=== PATIENT | female | born 1965 | race Caucasian/White ===

== ENCOUNTER 2024-03-05 19:22 | Inpatient (IN) | payer OTHER ==
[~2024-03-05] VITALS: Ht 162.6 cm; Wt 81.2 kg
[2024-03-05 19:54] VITALS: BP_SYST 131; PULSE 95; RESP 20; TEMP 98; O2SAT 98
[2024-03-05] MEDS: KETOROLAC TROMETHAMINE 60 MG/2 ML VIAL IM ONE (21:23)
[2024-03-06] MEDS ORDERED: MORPHINE 2 MG/ML INJ. SYRINGE IVP PRN (01:15)
[2024-03-06] MEDS ORDERED: ESOM40CA PO (01:25)
[2024-03-06 01:33] LABS: HEMOGLOBIN 14.4 g/dL (12.0-16.0); MEAN CORPUSCULAR HGB CONC 35 % (32-36); PLATELET COUNT (AUTO) 179 K/uL (130-430)
[2024-03-06 01:39] LABS: ALBUMIN 3.8 g/dL (3.4-4.8); BILIRUBIN,DIRECT 0.3 mg/dL (0.0-0.3); CALCIUM 8.8 mg/dL (8.4-11.0); CREATININE 1.39 mg/dL (0.55-1.30); POTASSIUM 3.9 mmol/L (3.5-5.1); TOTAL BILIRUBIN 1.3 mg/dL (0.0-1.0); TOTAL PROTEIN, SERUM 6.6 g/dL (6.4-8.3)
[2024-03-06 01:44] LABS: BASOPHILS % (AUTO) 0.2 % (0.0-2.0); EOSINOPHILS # (AUTO) 0.1 K/uL (0.0-0.4); HEMATOCRIT 41.2 % (36-48); LYMPHOCYTES # (AUTO) 1.7 K/uL (1.0-5.5); LYMPHOCYTES % (AUTO) 17.4 % (20.5-51.5); MEAN CORPUSCULAR HEMOGLOBIN 33 pg (27-31); MEAN CORPUSCULAR VOLUME 94 fL (79.0-98.0); MONOCYTES # (AUTO) 0.5 K/uL (0.0-1.0); MONOCYTES % (AUTO) 5.2 % (1.7-9.3); NEUTROPHILS # (AUTO) 7.5 K/uL (1.8-7.7); NEUTROPHILS % (AUTO) 76.2 % (40.0-70.0); RED BLOOD CELL COUNT(AUTO) 4.39 MIL/uL (4.2-6.2); RED CELL DISTRIBUTION WIDTH 12.4 % (9.0-15.0); WHITE BLOOD COUNT (AUTO) 9.8 K/uL (4.8-10.8)
[2024-03-06 02:19] LABS: BILIRUBIN,URINE 1+ (NEGATIVE); BLOOD, URINE NEGATIVE (NEGATIVE); CLARITY/URINE CLEAR (CLEAR); COLOR,URINE YELLOW (YELLOW); GLUCOSE,URINE NEGATIVE (NEGATIVE); KETONES,URINE TRACE (NEGATIVE); LEUKOCYTE ESTERASE ,URINE NEGATIVE (NEGATIVE); NITRITE, URINE NEGATIVE (NEGATIVE); PH,URINE 5.5 (5.0-8.0); PROTEIN URINE TRACE (NEGATIVE); UROBILINOGEN,URINE 0.2 (0.2-1.0)
[2024-03-06 02:49] LABS: BACTERIA,URINE None Seen /HPF (None Seen)
[2024-03-06 08:00] VITALS: BP_SYST 111; PULSE 77; RESP 24; TEMP 97.3; O2SAT 96
[2024-03-06] MEDS: MORPHINE 4 MG INJ. 4 MG/ML VIAL IVP PRN (09:16)
[2024-03-06] MEDS: ONDANSETRON HCL 4 MG/2 ML VIAL IVP PRN (09:16)
[2024-03-06 10:00] VITALS: BP_SYST 111; PULSE 77; RESP 24; TEMP 97.3; O2SAT 96
[2024-03-06 11:08] VITALS: BP_SYST 111; PULSE 77; RESP 24; TEMP 97
[2024-03-06] MEDS ORDERED: TRAM50TA2 PO (11:32)
[2024-03-06 12:00] VITALS: BP_SYST 118; PULSE 77; RESP 24; TEMP 100.4; O2SAT 95
[2024-03-06 13:57] VITALS: O2SAT 96
[2024-03-06 14:16] VITALS: BP_SYST 116; PULSE 57; RESP 24; TEMP 99.3; O2SAT 97
== END 2024-03-06 14:40 | disposition home or self-care (01) | DRG 563 ==
LOC: SED 19:22 → SMU 03-06 00:42
PROVIDERS: ADMIT Preventive Medicine Preventive Medicine/Occupational Environmental Medicine; ATTEND Preventive Medicine Preventive Medicine/Occupational Environmental Medicine
DX: S42.291A Other displaced fracture of upper end of right humerus, initial encounter for closed fracture (principal); E87.1 Hypo-osmolality and hyponatremia; R73.9 Hyperglycemia, unspecified; W01.0XXA Fall on same level from slipping, tripping and stumbling without subsequent striking against object, initial encounter; K21.9 Gastro-esophageal reflux disease without esophagitis; E88.09 Other disorders of plasma-protein metabolism, not elsewhere classified; Z79.899 Other long term (current) drug therapy; Z88.8 Allergy status to other drugs, medicaments and biological substances; Y93.89 Activity, other specified; Y92.89 Other specified places as the place of occurrence of the external cause; Y99.8 Other external cause status
CPT/HCPCS: 36415; 71045; 71100; 73030; 73200-TC; 80048; 80076; 81000; 81001; 81015; 85025; 93005; 96372; 99285; J1885; J2270; J2405

== ENCOUNTER 2024-03-16 09:39 | Day surgery (SDC) | payer OTHER ==
[~2024-03-16] VITALS: Ht 162.6 cm; Wt 81.2 kg
[~2024-03-16 09:39] MED LIST: CEFAZOLIN SOD 2 GM in D5W 50 ML IV ONE; ESOM40CA PO; TRAM50TA2 PO
[2024-03-16] MEDS ORDERED: ACETAMINOPHEN 500 MG TABLET ONE (10:24)
[2024-03-16] MEDS ORDERED: GABAPENTIN 300 MG CAPSULE ONE (10:25)
[2024-03-16] MEDS ORDERED: oxyCODONE HCL 10 MG TAB.ER.12H PO ONE (10:25)
[2024-03-16] MEDS: ACETAMINOPHEN 500 MG TABLET PO ONE (10:41)
[2024-03-16] MEDS: GABAPENTIN 300 MG CAPSULE PO ONE (10:41)
[2024-03-16] MEDS ORDERED: traMADol HCL HCL 50 MG TABLET (ULTRAM) PO PRN (11:00)
[2024-03-16] MEDS ORDERED: oxyCODONE HCL 5 MG TABLET PO PRN (11:00)
[2024-03-16] MEDS ORDERED: HYDROmorphone 1 MG/ML INJ. CARTRIDGE IVP PRN ×3 (11:00)
[2024-03-16] MEDS ORDERED: LORATADINE 10 MG TABLET PO PRN (11:00)
[2024-03-16] MEDS ORDERED: ONDANSETRON HCL 4 MG/2 ML VIAL IVP PRN ×2 (11:45→15:15)
[2024-03-16] MEDS ORDERED: TRANEXAMIC ACID 1,000 MG/10 ML VIAL ONE (14:16)
[2024-03-16] MEDS ORDERED: PROPOFOL 200MG/ 20ML VIAL (DIPRIVAN) IV ONE (14:16)
[2024-03-16] MEDS ORDERED: ROCURONIUM BROMIDE 10 MG/ML (ZEMURON) ONE (14:16)
[2024-03-16] MEDS ORDERED: BUPIVACAINE /PF 0.25% 30 ML VIAL INJ ONE (14:16)
[2024-03-16] MEDS ORDERED: WATER FOR IRRIGATION,STERILE 1,000 ML IRRIG.SOLN IR ONE (14:16)
[2024-03-16] MEDS ORDERED: LR 1,000 ML IV.SOLN IV ONE (14:16)
[2024-03-16] MEDS ORDERED: VANCOMYCIN HCL 1000 MG/VIAL IV ONE (14:16)
[2024-03-16] MEDS ORDERED: SEVOFLURANE 15 MIN GAS INH ONE (14:16)
[2024-03-16] MEDS ORDERED: fentaNYL CITRATE/PF 100 MCG/2 ML AMP ONE (14:16)
[2024-03-16] MEDS ORDERED: METOCLOPRAMIDE HCL 10 MG/2 ML VIAL ONE (14:16)
[2024-03-16] MEDS ORDERED: MIDAZOLAM HCL 2 MG/2 ML VIAL (VERSED) ONE (14:16)
[2024-03-16] MEDS ORDERED: KETOROLAC TROMETHAMINE 30 MG VIAL ONE (14:16)
[2024-03-16] MEDS ORDERED: ONDANSETRON HCL 4 MG/2 ML VIAL ONE (14:16)
[2024-03-16] MEDS ORDERED: NS IRRIG SOLN 5000 ML IR ONE (14:16)
[2024-03-16] MEDS ORDERED: NS IRRIG SOLN 1000 ML IR ONE (14:16)
[2024-03-16] MEDS ORDERED: HYDROmorphone 2 MG/ML VIAL ONE (14:16)
[2024-03-16] MEDS: oxyCODONE HCL 10 MG TAB.ER.12H PO ONE (14:22)
[2024-03-16] MEDS ORDERED: ACETAMINOPHEN I.V. 1000 MG 100 ML IV ONE (15:12)
[2024-03-16] MEDS ORDERED: HYDROmorphone 2 MG/ML VIAL IVP PRN (15:15)
[2024-03-16] MEDS ORDERED: KETOROLAC TROMETHAMINE 30 MG VIAL IVP PRN (15:15)
[2024-03-16] MEDS ORDERED: LR 1,000 ML IV SCH (15:15)
[2024-03-16] MEDS ORDERED: BISACODYL 10 MG/SUPPOSITORY RC PRN (17:15)
[2024-03-16] MEDS ORDERED: DIPHENHYDRAMINE HCL 25 MG CAPSULE PO PRN (17:15)
[2024-03-16] MEDS ORDERED: METOCLOPRAMIDE HCL 10 MG/2 ML VIAL IVP PRN (17:15)
[2024-03-16] MEDS ORDERED: LACTULOSE 20 GM/30 ML UDC PO PRN (17:15)
[2024-03-16 18:50] VITALS: BP_SYST 168; PULSE 77; RESP 18; TEMP 97.8; O2SAT 93
[2024-03-16 20:00] VITALS: BP_SYST 152; PULSE 70; RESP 18; TEMP 98; O2SAT 95
[2024-03-16] MEDS: ceFAZolin SODIUM 2 GM in D5W 50 ML IV SCH (20:51)
[2024-03-16] MEDS: SENNOSIDES/DOCUSATE SODIUM 1 TAB TABLET(SENOKOT-S) PO SCH (20:51)
[2024-03-16] MEDS: HYDROmorphone 1 MG/ML INJ. CARTRIDGE IVP PRN (20:53)
[2024-03-16] MEDS: KETOROLAC TROMETHAMINE 10 MG TABLET (TORADOL) PO SCH (21:00)
[2024-03-16] MEDS: ACETAMINOPHEN 500 MG TABLET PO SCH (22:00)
[2024-03-17] VITALS: BP_SYST 145; PULSE 74; RESP 16; TEMP 97.5; O2SAT 96
[2024-03-17] MEDS: oxyCODONE HCL 5 MG TABLET PO PRN (03:16)
[2024-03-17 08:14] VITALS: BP_SYST 153; PULSE 83; RESP 18; TEMP 97.6; O2SAT 97
[2024-03-17] MEDS: ASPIRIN 81 MG TAB.CHEW PO SCH (09:47)
[2024-03-17] MEDS: CELECOXIB 200 MG CAPSULE PO SCH (12:16)
[2024-03-17 12:47] VITALS: BP_SYST 151; PULSE 85; RESP 16; TEMP 98; O2SAT 96
[2024-03-17 12:48] VITALS: BP_SYST 149; PULSE 87; RESP 18; TEMP 99; O2SAT 96
== END 2024-03-17 13:50 | disposition home or self-care (01) ==
LOC: SDS 09:39 → SMU 19:43 → SDS 03-17 13:50
PROVIDERS: ATTEND Orthopaedic Surgery Sports Medicine
DX: S42.291A Other displaced fracture of upper end of right humerus, initial encounter for closed fracture (principal); M87.821 Other osteonecrosis, right humerus; M75.21 Bicipital tendinitis, right shoulder; K21.9 Gastro-esophageal reflux disease without esophagitis; F17.210 Nicotine dependence, cigarettes, uncomplicated; Z79.899 Other long term (current) drug therapy; Z90.49 Acquired absence of other specified parts of digestive tract; Z98.890 Other specified postprocedural states; W18.39XA Other fall on same level, initial encounter; Y93.89 Activity, other specified; Y92.89 Other specified places as the place of occurrence of the external cause; Y99.8 Other external cause status
CPT/HCPCS: 87081; 23472; 23430; 96379; 88305; 88311; J3490 ×2; J0690; J1885; J2765; J2250; J2405; J2704; J3370; J3010; J1171 ×2; J7060; J7120; A4649; C1776 ×2; J0131; 76000; 88304